=== PATIENT | female | born 2005 | race Caucasian/White ===

== ENCOUNTER 2024-10-09 08:58 | Emergency (ER) | payer BC, SELFPAY ==
[2024-10-09 09:02] VITALS: BP 110/75
[2024-10-09 09:32] LABS: % Basophils 0.1 % (0-2); % Eosinophils 0.5 % (0-6); % Immature Granulocytes 0.3 % (0-0.5); % Lymphocytes 10.2 % (20.5-51.1); % Monocytes 7.3 % (1.7-9.3); % Neutrophils 81.6 % (42.2-75.2); Absolute Eosinophils 0.1 10^3/uL (0-0.7); Absolute Lymphocytes 0.9 10^3/uL (1.2-3.4); Absolute Monocytes 0.7 10^3/uL (0.1-0.6); Absolute Neutrophils 7.5 10^3/uL (1.4-6.5); Hematocrit 39.9 % (37.0-47.0); Hemoglobin 13.1 g/dL (12.0-16.0); Mean Corp Hgb Conc. 32.8 g/dL (33.0-37.0); Mean Corpuscular Hgb 28.1 pg (27.0-31.0); Mean Corpuscular Volume 85.6 fL (81.0-99.0); Mean Platelet Volume 10.8 fL (7.4-10.4); Nucleated Red Blood Cells % 0 %; Platelet Count 155 10^3/uL (130-400); Red Blood Cell Count 4.66 10^6/uL (4.20-5.40); Red Cell Dist. Width 12.4 % (11.5-14.5); White Blood Cell Count 9.2 10^3/uL (4.8-10.8)
[2024-10-09 09:44] LABS: HCG, Serum Qualitative Screen Negative
[2024-10-09 09:46] LABS: ALT (SGPT) 42 U/L (0-35); AST (SGOT) 44 U/L (14-36); Albumin 4.5 g/dl (3.5-5.0); Alkaline Phosphatase 47 U/L (38-126); Blood Urea Nitrogen 12 mg/dl (7-17); Calcium 9.7 mg/dl (8.4-10.2); Carbon Dioxide 26 mmol/L (22-30); Chloride 109 mmol/L (98-107); Glucose 119 mg/dl (70-99); Lipase 116 U/L (23-300); Potassium 4.1 mmol/L (3.5-5.1); Sodium 141 mmol/L (135-145); Total Bilirubin 0.7 mg/dl (0.2-1.3); Total Protein 7.3 g/dl (6.3-8.2); eGFR > 60.00
--- NOTE | 2024-10-09 10:07 | ED.GENMED ---
History of Present Illness
General
Chief Complaint: Abdominal Pain
Source: patient
Exam Limitations: none
Time Seen by Provider: 10/09/24 09:56
History of Present Illness
History of Present Illness:
See MDM
Past History
Past History
ED Past Medical History: None
ED Past Surgical History: None
Social History
Tobacco: Non-smoker
Alcohol: Occasional
Phy Exam
Physical Exam
Physical Exam:
See MDM
Course
Orders/Labs/Results
Orders:
Orders
10/09/24 09:07
Test Result ONCE
10/09/24 09:17
Complete Blood Count/With Diff Urgent
Comprehensive Metabolic Panel Urgent
HCG, Serum Qualitative Screen Urgent
Lipase Urgent
10/09/24 10:05
CT Abd/pelvis W Iv Cont Urgent
Comment:
Reason For Exam: mid abd pain, vomiting
0.9% Sodium Chloride 1000 ml [Nss] 1,000 ml IV BOLUS
Ketorolac [Toradol] 30 mg IV NOW STA
Abnormal Lab Results
10/09/24
09:17
MCHC 32.8 L g/dL
(33.0-37.0)
MPV 10.8 H fL
(7.4-10.4)
Absolute Neuts (auto) 7.5 H 10^3/uL
(1.4-6.5)
Absolute Lymphs (auto) 0.9 L 10^3/uL
(1.2-3.4)
Absolute Monos (auto) 0.7 H 10^3/uL
(0.1-0.6)
Neutrophils % 81.6 H %
(42.2-75.2)
Lymphocytes % 10.2 L %
(20.5-51.1)
Chloride 109 H mmol/L
(98-107)
Glucose 119 H mg/dl
(70-99)
AST 44 H U/L
(14-36)
ALT 42 H U/L
(0-35)
10/09/24 09:17
10/09/24 09:17
Vital Signs
Initial and Last Documented VS:
Initial Vital Signs
Temp Pulse Resp BP Pulse Ox
98.2 F 89 16 110/75 100
10/09/24 09:02 10/09/24 09:02 10/09/24 09:02 10/09/24 09:02 10/09/24 09:02
Last Documented Vital Signs
Temp Pulse Resp BP Pulse Ox
98.2 F 80 16 110/80 97
10/09/24 09:02 10/09/24 11:59 10/09/24 11:59 10/09/24 11:59 10/09/24 11:59
MDM/Problems Addressed
Differential Diagnosis Includes:
HPI and MDM Narrative:
19-year-old female presenting for evaluation of intermittent abdominal pain. Patient is concerned because it is becoming more routine. She has been dealing with this pain for several months. She cannot find a correlation between time of day or
food intake. Pain has been ongoing since last night. She threw up. Mother was worried because her vomit was all bile. On my exam, she has mild mid abdominal tenderness. She has no right upper quadrant tenderness. Given duration of symptoms,
will obtain CT
Physical exam
General: Well appearing and non-toxic
HEENT: protecting airway
Neck: appears supple
CV: No evidence of cyanosis
Resp: No accessory muscle use
Abd: Non-distended. Mild mid abdominal tenderness. Negative McBurney and negative Mckeon sign
Extremities: No deformities
Neuro: alert
Psych: Normal affect
Skin: Intact
Problems Addressed including Acute and Chronic Conditions affecting care:
1. Abdominal pain
Acuity: acute
Prognosis: stable
Details: Given persistent symptoms, will obtain CT
Updates
CT shows concern for colitis. Given that symptoms started after she was taking antibiotics, I am hesitant to treat this as bacterial colitis. Given her allergy to Augmentin, I will write for ciprofloxacin and Flagyl but discussed having a
conversation with her doctor first before starting the medication. We discussed outpatient follow-up with GI as she will require colonoscopy. Patient and mother given a printout of the CT report and we discussed the incidental findings with
enlarged left adnexa, intrahepatic biliary dilation and splenomegaly. Discussed outpatient testing for these issues
Differential Diagnosis (but not limited to): Gastritis, peptic ulcer disease, gallbladder pathology, colitis
Testing considered: Right upper quadrant ultrasound
Drug therapy (if applicable): OTC meds, please see d/c instruction regarding Rx drugs
Amount and/or Complexity of Data Reviewed
Clinical info obtained from: Patient
External data reviewed: N/A
Labs I independently reviewed (but not limited to): White blood cell count normal
Radiology: The CT scan was personally and independently reviewed. In addition, official CT report reviewed.
Pulse Ox: not hypoxic
EKG independently reviewed: N/A
Road Mechanic: N/A
Critical Care: N/A
Risk of Complication:
Social Determinants of health: Good social support
Discussed with other providers: N/A
Escalation of Care includes Admit/Obs: After being observed in the Emergency Department, pt stable for discharge.
Occasional wrong word or 'sound a like' substitutions may have occurred due to the inherent limitations of voice recognition software. Read the chart carefully and recognize, using context, where substitutions have occurred.
*Critical Care Note
Total Time (30-74mins, 75-104mins- exclusive of procedures): Not Applicable
ED Attending Note
-
Portions of this chart may have been created with voice recognition software.� Occasional wrong word or��sound alike� substitutions may have occurred due to the inherent limitations of voice recognition software.
Discharge Plan
Departure
Patient Disposition: Home (Routine Discharge)
Date of Disposition: 10/09/24
Time of Disposition: 12:35
Patient with high blood pressure during this ER visit?: No
Discharge Problem:
Colitis
Instructions: Colitis
Prescriptions:
New
metronidazole 500 mg Tablet
500 mg PO TID Qty: 21 0RF
ciprofloxacin HCl 500 mg Tablet
500 mg PO BID Qty: 14 0RF
ondansetron 4 mg Tablet,Disintegrating
4 mg PO BIDPRN PRN (Reason: nausea/vomiting) Qty: 10 0RF
oxycodone 5 mg tablet
5 mg PO Q8H PRN (Reason: Pain) Qty: 7 0RF
dicyclomine 10 mg capsule
10 mg PO BID Qty: 20 0RF
Referrals:
Pillo Capps MD [Active] -
Johnny Phelps NP [Family Provider] -
Activity Restrictions/Additional Instructions:
Please return for any worsening symptoms.
You may return at any time if you have further concerns.
Please follow up with your doctor at the first available appointment, preferably this week. Please talk to your doctor about the incidental findings on the CT scan.
Please make an appointment to see the microphone operator.
Thank you for choosing [facility].
Interventions
Interventions:
*Risk Screen - Suicide Last Done: 10/09/24 09:02
*General Assessment Last Done: 10/09/24 09:02
*Neglect/Abuse Screening Last Done: 10/09/24 11:48
*ED- Fall Risk Assessment Last Done: 10/09/24 11:48
*ED COVID-19 Vaccine History Last Done: 10/09/24 11:48
[facility]-Vwdzhm-Rgspnfadtj Assessment Last Done: 10/09/24 11:48
Discharge Date and Time
Print Language: FRISIAN
[2024-10-09 10:21] VITALS: BMI 29.5
[2024-10-09] MEDS: TORADOL 30 MG IV (10:34)
[2024-10-09] MEDS: NSS 1000 IV (10:35)
[2024-10-09 11:59] VITALS: BP 110/80
== END 2024-10-09 13:06 | disposition home or self-care (01) ==
LOC: EMR 08:58
PROVIDERS: EMERGENCY PHYSICIAN Student in an Organized Health Care Education/Training Program; FAMILY PHYSICIAN Nurse Practitioner Gerontology
DX: K52.9 Noninfective gastroenteritis and colitis, unspecified (principal); R11.10 Vomiting, unspecified; R16.1 Splenomegaly, not elsewhere classified; Z88.1 Allergy status to other antibiotic agents
CPT/HCPCS: 99284; 96361; 96374; 74177; 80053; 83690; 84703; 85025; Q9967

== ENCOUNTER 2024-11-03 06:27 | Day surgery (SDC) | payer BC, SELFPAY | END 2024-11-03 11:38 | disposition home or self-care (01) | LOC: GI 06:27 | PROVIDERS: ATTENDING PHYSICIAN Internal Medicine | DX: R10.84 Generalized abdominal pain (principal); R93.3 Abnormal findings on diagnostic imaging of other parts of digestive tract; R19.7 Diarrhea, unspecified; R11.2 Nausea with vomiting, unspecified; R10.13 Epigastric pain; K62.9 Disease of anus and rectum, unspecified; K29.50 Unspecified chronic gastritis without bleeding | CPT/HCPCS: 45385; 45380; 43239; 88305; 88342 ==

== ENCOUNTER 2025-01-06 09:17 | Emergency (ER) | payer BC, SELFPAY ==
[2025-01-06 09:25] VITALS: BP 128/71
[2025-01-06 09:55] LABS: Hematocrit 40.9 % (37.0-47.0); Hemoglobin 13.5 g/dL (12.0-16.0); Mean Corp Hgb Conc. 33.0 g/dL (33.0-37.0); Mean Corpuscular Volume 85.2 fL (81.0-99.0); Nucleated Red Blood Cells % 0 %; Platelet Count 174 10^3/uL (130-400); Red Cell Dist. Width 12.1 % (11.5-14.5)
[2025-01-06 10:13] LABS: ALT (SGPT) 26 U/L (0-35); AST (SGOT) 25 U/L (14-36); Albumin 4.8 g/dl (3.5-5.0); Alkaline Phosphatase 47 U/L (38-126); Blood Urea Nitrogen 11 mg/dl (7-17); Calcium 9.8 mg/dl (8.4-10.2); Carbon Dioxide 27 mmol/L (22-30); Chloride 105 mmol/L (98-107); Glucose 100 mg/dl (70-99); Lipase 162 U/L (23-300); Potassium 4.4 mmol/L (3.5-5.1); Sodium 138 mmol/L (135-145); Total Protein 8.0 g/dl (6.3-8.2); eGFR > 60.00
--- NOTE | 2025-01-06 10:58 | ED.GENMED ---
History of Present Illness
General
Chief Complaint: Abdominal Pain
Source: patient
Exam Limitations: none
Time Seen by Provider: 01/06/25 10:37
History of Present Illness
History of Present Illness:
See MDM
Past History
Past History
ED Past Medical History: None
ED Past Surgical History: None
Social History
Tobacco: Non-smoker
Alcohol: Occasional
Phy Exam
Physical Exam
Physical Exam:
See MDM
Course
Orders/Labs/Results
Orders:
Orders
01/06/25 09:42
Add On- LAB Urgent
Tests Added?: hcg qualitative
Complete Blood Count/With Diff Urgent
Comprehensive Metabolic Panel Urgent
HCG, Serum Qualitative Screen Urgent
Comment: ADD ON
Lipase Urgent
01/06/25 10:55
CT Abd/pel W Iv And Oral Contr Urgent
Comment:
Reason For Exam: general abd pain
Iohexol [Omnipaque] See Protocol PO NOW STA
Ketorolac [Toradol] 30 mg IV NOW STA
Abnormal Lab Results
01/06/25
09:42
MPV 10.6 H fL
(7.4-10.4)
Absolute Monos (auto) 0.8 H 10^3/uL
(0.1-0.6)
Monocytes % 10.9 H %
(1.7-9.3)
Glucose 100 H mg/dl
(70-99)
01/06/25 09:42
01/06/25 09:42
Vital Signs
Initial and Last Documented VS:
Initial Vital Signs
Temp Pulse Resp BP Pulse Ox
98.3 F 75 16 128/71 100
01/06/25 09:25 01/06/25 09:25 01/06/25 09:25 01/06/25 09:25 01/06/25 09:25
Last Documented Vital Signs
Temp Pulse Resp BP Pulse Ox
98.3 F 73 18 116/71 99
01/06/25 09:25 01/06/25 14:14 01/06/25 14:14 01/06/25 14:14 01/06/25 14:14
MDM/Problems Addressed
Differential Diagnosis Includes:
Note:
CHIEF COMPLAINT(S)
Abdominal pain and irregular menstrual cycles.
HISTORY OF PRESENT ILLNESS
The patient is a 19-year-old female with a prior history of colitis. She reports recurrent episodes of abdominal pain lasting longer than previous episodes. Initially, symptoms began at approximately 1:00 PM the previous day. This episode is
characterized by the same type of pain experienced previously but notably without vomiting, though nausea persists. She describes the pain as centralized in her abdomen.
Previously, the patient underwent a CT scan with contrast revealing colitis. Since then, the pt follwed with GI and got a colonoscopy and an endoscopy. The endoscopy indicated inflammation in the stomach, while the colonoscopy was unremarkable.
Biopsies were performed without significant findings. Her GI specialist has recommended an MRI of the abdomen with and without contrast to further investigate potential gallbladder or inflammatory bowel disease, but the specifics remain uncertain.
Additionally, the patient has had extensive blood work to evaluate for various possible gastrointestinal conditions, including inflammatory bowel diseases, with no definitive diagnosis.
Regarding her irregular menstrual cycles, the patient underwent an ultrasound which identified a cyst on her left ovary and a possible polyp or fibroid in the uterus. An MRI is scheduled for further evaluation. She reports bleeding during ovulation
and irregular cycles.
The patient notes past experiences of severe abdominal distress after taking Augmentin, which has made her cautious about antibiotic treatments. She is currently not on any antibiotics. Previously managed with Dicyclomine (Bentyl), which she took as
recently as yesterday, but without significant relief.
PAST MEDICAL AND SURGICAL HISTORY
History of colitis.
CHRONIC MEDICAL CONDITIONS SIGNIFICANTLY AFFECTING CARE
History of colitis.
SOCIAL HISTORY
The patient reports occasional social alcohol use; denies heavy consumption.
REVIEW OF SYSTEMS
- Gastrointestinal: Recurrent abdominal pain, nausea, previous vomiting episodes; no recent diarrhea.
- Gynecological: Irregular menstrual cycles, bleeding during ovulation, identified ovarian cyst, and possible uterine polyp or fibroid.
PHYSICAL EXAM
General: Alert, no acute distress.
Skin: Warm, dry.
Head: Normocephalic, atraumatic
Neck: Appears supple, trachea midline.
Eyes, Ears, Nose, Mouth, and Throat: Oral mucosa moist.
Cardiovascular: No signs of cyanosis
Respiratory: Respirations are non-labored.
Abdomen: Non-distended. Mild epigastric discomfort without rebound
Musculoskeletal: No deformities
Neurological: No focal neurological deficit observed.
Psychiatric: Cooperative, appropriate mood and affect.
PLAN
- Continue to follow the appointment for outpatient MRI of the abdomen with and without contrast as per GI specialist recommendations.
-Potential avoidance of antibiotics due to previous adverse reaction to Augmentin.
- Obtain CT abdomen/pelvis with IV and oral contrast
DIFFERENTIAL DIAGNOSIS
The Differential Diagnosis includes, in no particular order and is not limited to:
1. Crohns Disease
2. Ulcerative Colitis
3. Irritable Bowel Syndrome
4. Celiac Disease
5. Diverticulitis
6. Gallstones
7. Ovarian Cyst Rupture
8. Pelvic Inflammatory Disease
9. Peptic Ulcer Disease
10. Gastritis
SUMMARY OF ENCOUNTER
The patient, a 19-year-old female, presented to the emergency department with complaints of abdominal pain and irregular menstrual cycles. Recent abdominal pain episodes were characterized by central pain and nausea. A CT scan previously identified
colitis, prompting further investigation for potential gallbladder or inflammatory bowel disease. Blood work showed no significant abnormalities, and the reassuring CT from this visit indicated no colitis, though asymmetric enlargement of the left
adnexa was noted, matching previous findings. The patient has addressed this with her denial resolution specialist.
REASSESSMENT
The patient reported feeling much better, with symptoms resolved during reassessment.
PLAN
Patient is advised to follow up for the scheduled MRI as an outpatient. She is to continue managing her symptoms with medication as prescribed until her MRI provides further insights.
INDEPENDENT REVIEW OF LABS AND INTERPRETATION OF TESTS
My independent review of the CT scan shows no evidence of colitis; however, there is asymmetric enlargement of the left adnexa, consistent with previous results.
MEDICATION RECONCILIATION
Prescription for ketorolac (Toradol) provided for pain management as needed (PRN) until her outpatient MRI.
MEDICAL DECISION MAKING
- Number and Complexity of Problems Addressed: Chronic conditions affecting care include a history of colitis. Differential diagnosis includes Crohns Disease, Ulcerative Colitis, Irritable Bowel Syndrome, Celiac Disease, Diverticulitis, Gallstones,
Ovarian Cyst Rupture, Pelvic Inflammatory Disease, Peptic Ulcer Disease, and Gastritis.
- Data:
Category 1:
My independent interpretation of the CT scan shows no significant abnormality outside of the known asymmetric enlargement of the left adnexa.
- Risk:
Consideration of Admission/Observation: Escalation of care including admission/observation was considered due to the complexity and risk of the patients presenting complaint, exam findings, and underlying comorbidities. Ultimately, the patient is
considered safe for outpatient management with close follow-up.
DIAGNOSIS
1. Asymmetric enlargement of the left adnexa (ICD-10: N83.2)
2. Colitis, unspecified (ICD-10: K52.9)
*Pulse Oximetry
SaO2: 100
Oxygen Mode of Delivery: Room air
Patient hypoxic: no
*Critical Care Note
Total Time (30-74mins, 75-104mins- exclusive of procedures): Not Applicable
ED Attending Note
-
Portions of this chart may have been created with voice recognition software.� Occasional wrong word or��sound alike� substitutions may have occurred due to the inherent limitations of voice recognition software.
Discharge Plan
Departure
Patient Disposition: Home (Routine Discharge)
Date of Disposition: 01/06/25
Time of Disposition: 14:57
Patient with high blood pressure during this ER visit?: No
Discharge Problem:
Abdominal pain
Prescriptions:
New
ketorolac 10 mg tablet
10 mg PO Q8H PRN (Reason: Pain) 4 Days Qty: 12 0RF
No Action
metronidazole 500 mg Tablet
500 mg PO TID Qty: 21 0RF
ciprofloxacin HCl 500 mg Tablet
500 mg PO BID Qty: 14 0RF
ondansetron 4 mg Tablet,Disintegrating
4 mg PO BIDPRN PRN (Reason: nausea/vomiting) Qty: 10 0RF
oxycodone 5 mg tablet
5 mg PO Q8H PRN (Reason: Pain) Qty: 7 0RF
dicyclomine 10 mg capsule
10 mg PO BID Qty: 20 0RF
Referrals:
Johnny Phelps NP [Family Provider, General]
Activity Restrictions/Additional Instructions:
Please return for any worsening symptoms.
You may return at any time if you have further concerns.
As we discussed, it is uncertain where the pain is coming from. Please keep your appointment for the MRI.
Thank you for choosing [facility].
Interventions
Interventions:
*Risk Screen - Suicide Last Done: 01/06/25 09:29
*General Assessment Last Done: 01/06/25 09:29
*Neglect/Abuse Screening Last Done: 01/06/25 09:29
*ED COVID-19 Vaccine History Last Done: 01/06/25 09:29
BK-Mkykqx-Eqgabtjxop Assessment Last Done: 01/06/25 11:57
Discharge Date and Time
Print Language: MALDIVIAN
[2025-01-06 11:02] LABS: HCG, Serum Qualitative Screen Negative
[2025-01-06] MEDS: OMNIPAQUE 50 ML PO (11:25)
[2025-01-06] MEDS: TORADOL 30 MG IV (11:25)
[2025-01-06 14:14] VITALS: BP 116/71
== END 2025-01-06 15:02 | disposition home or self-care (01) ==
LOC: EMR 09:17
PROVIDERS: Emergency Medicine; EMERGENCY PHYSICIAN Student in an Organized Health Care Education/Training Program; FAMILY PHYSICIAN Nurse Practitioner Gerontology
DX: K52.9 Noninfective gastroenteritis and colitis, unspecified (principal); N83.202 Unspecified ovarian cyst, left side
CPT/HCPCS: 96374; 99284; 74177; 80053; 83690; 84703; 85025; Q9967

== ENCOUNTER → 2025-02-16 19:04 | Outpatient (REF) | payer BC, SELFPAY | LOC: MRI 3T 19:04 | PROVIDERS: ATTENDING PHYSICIAN Internal Medicine; FAMILY PHYSICIAN Nurse Practitioner Gerontology | DX: R74.8 Abnormal levels of other serum enzymes (principal); K83.8 Other specified diseases of biliary tract | CPT/HCPCS: 74183; A9575 ==